=== PATIENT | male | born 1945 | race African-American/Black ===

== ENCOUNTER 2020-03-03 19:29 | Inpatient (IN) | payer SELFPAY ==
[~2020-03-03] VITALS: Ht 175.3 cm; Wt 71.0 kg
--- NOTE | 2020-03-03 19:30 | NUR ---
PT AMBULATED TO ROOM 13.
--- NOTE | 2020-03-03 19:40 | NUR ---
PT PRESENTS WITH CONCERNS OF CONFUSION. HIS FAMILY MEMBER IS HERE SAYING THAT PT HAS HAD SCATTERED THOUGHTS IN THE LAST 4-5 DAYS. PT IS ONLY ORIENTED TO PERSON. FAMILY AND PT DENIES ANY OTHER S/S OR PAINS. WILL CONTINUE TO MONITOR.
[2020-03-03] MEDS ORDERED: BP (19:55)
[2020-03-03 20:02] LABS: HEMATOCRIT 39.7 % (39.0-50.0); HEMOGLOBIN 13.5 g/dl (14.0-18.0); IMMATURE GRANULOCYTES 0.3 % (0.0-5.0); MEAN CELL VOLUME 86.3 fL CALC (80.0-100.0); MEAN CORPUSCULAR HGB 29.3 pG CALC (26.0-32.0); NEUT# 1.8 thou/uL (1.82-7.42); RED BLOOD COUNT 4.6 mill/uL (4.70-6.10); RED CELL DISTRI WIDTH 13.2 % (11.5-15.5)
[2020-03-03 20:19] LABS: PROTHROMBIN TIME 10.5 SECONDS (9.0-12.5)
[2020-03-03 20:21] LABS: ALKALINE PHOSPHATASE 39 u/l (38-126); ANION GAP 12 (6-22 (CALC)); BILIRUBIN, TOTAL 0.4 mg/dL (0.0-1.4); BUN 12 mg/dL (8-23); BUN/CREATININE RATIO 15 (12-20 (CALC)); CARBON DIOXIDE 24 mmol/l (22-30); CHLORIDE 105 mmol/l (95-108); CREATININE 0.8 mg/dL (0.7-1.3); ETHYL ALCOHOL 18 mg/dl (0-30); GFR > 60 ML/MIN (>=60 (CALC)); GFR FOR AFR.AMER. > 60 ML/MIN (>=60 (CALC)); LIPASE 191 u/l (23-300); POTASSIUM 3.5 mmol/l (3.5-5.1); SGOT/AST 23 u/l (19-48); SODIUM 138 mmol/l (137-146); TOTAL PROTEIN 6.9 g/dL (6.3-8.2)
[2020-03-03 20:32] LABS: MYOGLOBIN 45 ng/mL (0 - 121)
--- NOTE | 2020-03-03 20:40 | NUR ---
PT RESTING IN STRETCHER. CALL LIGHT WITHIN REACH. DENIES ANY NEEDS AT THIS TIME
[2020-03-03 21:09] LABS: URINE BILIRUBIN - DIPSTICK NEGATIVE (NEGATIVE); URINE BLOOD DIPSTICK NEGATIVE (NEGATIVE); URINE COLOR YELLOW; URINE GLUCOSE - DIPSTICK NEGATIVE (NEGATIVE); URINE KETONE NEGATIVE (NEGATIVE); URINE LEUK ESTERASE NEGATIVE (NEGATIVE); URINE NITRITE - DIPSTICK NEGATIVE (Negative); URINE PH 5.5 (4.5-8.0); URINE PROTEIN - DIPSTICK NEGATIVE (NEG-TRACE); URINE SPECIFIC GRAVITY 1.025; URINE UROBILINOGEN - DIPSTICK 0.2 E.U./dL (0.2)
[2020-03-03 21:15] LABS: BARBITURATES NEGATIVE (NEGATIVE); COCAINE NEGATIVE (NEGATIVE); METHADONE NEGATIVE (NEGATIVE); OXCYCODONE NEGATIVE (NEGATIVE); TETRAHYDROCANNABIONOL NEGATIVE (NEGATIVE); TRICYLIC ANTIDEPRESSANTS NEGATIVE (NEGATIVE)
[2020-03-03 21:33] LABS: TSH, 3RD GENERATION 7.46 uIU/mL (0.47 - 4.68)
--- NOTE | 2020-03-03 21:48 | NUR ---
GAVE REPORT TO PEYTON
--- NOTE | 2020-03-03 22:08 | NUR ---
CALLED FLOOR FOR REPORT, SEAMUS IN ANOTHER ROOM WILL CALL BACK
--- NOTE | 2020-03-03 22:17 | NUR ---
Admission Note Report Given to: SEAMUS Transported by: X Wheelchair Stretcher Transported with: X Nurse Transporter X Patent IV O2 X Public Health Nurse Location: ICU X [facility]
[2020-03-03 22:28] VITALS: BP 169/74
--- NOTE | 2020-03-03 23:30 | NUR ---
PATIENT ADMITTED FROM ER VIA STRETCHER WITH ER STAFF IN ATTENDANCE. PATIENT IS AWAKE BUT CONFUSED. ASSISTED FROM STRETCHER TO THE BED. ABLE TO FOLLOW VERBAL QUES. AWAKE ALERT BUT CONFUSED. CREOLE SPEAKING ONLY. TELE MONITOR IN PLACE. IV SITE RIGHT AC WITH BANANA BAG PATENT AND INFUSING AT 125CC/HR. SITE IS HEALTHY. TELE MONITOR IN PLACE. 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 STATES THAT THEY JUST GOT TO [facility] A FEW DAYS AGO WHEN PATIENT STARTED TO BE CONFUSED AND HAVING TROUBLES. STATES THAT PATIENT STAYS WITH THEM-HER AND HER WHEN ON THE ROAD FOR HARVESTING RECENTLY [place]. FAMILY IS ALL IN [facility]. STATES THAT HE HAS HX OF HTN BUT NOTHING ELSE. TAKES LISINOPRIL, HCTZ AND CHOLESTEROL PILL-NOT SURE OF THE DOSES. NO LOCAL PCP. DRINKS 1-2 BEERS DAILY BUT NOT RECENTLY. NO DRUGS. ELAINE WILL CALL IN MORNING FOR UPDATE. PHONE #-[phone]-CALL IF NEEDED FOR INFO OR TRANSLATION. PATIENT RESTING IN BED. CALL LIGHT IN REACH. WILL CONT TO MONITOR.
[2020-03-03 23:48] VITALS: BP 178/83
[2020-03-04] VITALS (8 sets, daily range): BP systolic 142–172; BP diastolic 63–84
--- NOTE | 2020-03-04 04:00 | NUR ---
PATIENT RESTING IN BED- USING URINAL INSTRUCTED-VOIDING YELLOW URINE. TELE MONITOR IN PLACE. IVF PATENT AND INFUSING AT 125CC/HR. BED ALARM IN PLACE FOR PATIENT SAFETY. CALL LIGHT IN REACH. WILL CONT TO MONITOR.
--- NOTE | 2020-03-04 04:51 | NUR ---
PATIENT RESTING IN BED-MEDICATED WITH MYLANTA 30CC FOR INDIGESTION WITH RELIEF PATIENT STATES THAT HE WAS UP TO BR FOR BM AND BACK TO BED. TELE MONITOR IN PLACE. IVF PATENT AND INFUSING VIA LAC SITE. CALL LIGHT IN REACH. WILL CONT TO MONITOR.
[2020-03-04 05:10] LABS: CHOLESTEROL HDL RATIO 2.9 (<4.4 (CALC))
--- NOTE | 2020-03-04 07:10 | NUR ---
CHANGE OF SHIFT REPORT RECEIVED FROM JEANIE WAY. PT ABLE TO AMBULATE TO BATHROOM THIS AM WITH STAND BY ASSIST. PT'S GAIT IS STABLE. FALL SAFETY EDUCATION REINFORCED. PT VERBALIZED UNDERSTANDING. NO CONFUSION NOTED THIS AM. DISPERSION MIXER WILL CONTINUE TO MONITOR MENTAL STATUS
--- NOTE | 2020-03-04 11:54 | NUR ---
PT RESTING COMFORTABLY IN BED. PT DENIES PAIN OR DISCOMFORT. PT REORIENTED TO CALL BUTTON. PT DENIES NEED TO USE BATHROOM AT THIS TIME. PT SITTING EATING LUNCH AT THIS TIME. FACE SYMMETRICAL ABLE TO MOVE ALL EXTREMITIES WITH NO DRAG NOTED. CHISEL TRIMMER WILL CONTINUE TO MONITOR
--- NOTE | 2020-03-04 16:53 | NUR ---
PT WITH COMPLAINT OF INFREQUENT URINARY FREQUENCY. PT DENIES DYSURIA/URGENCY BLADDERIS NON PALPABLE. BLADDER IS NOT DISTENDED. URINALYSIS IS NEGATIVE FOR UTI. BLADDER SCAN RESULT SHOWS LESS THAN 71ML. DR SANCHEZ NOTIFIED OF PT BP OF 174/89 WITH HEART RATE OF 54. ORDER RECEIVED TO GIVE NORVASC 5MG AT THIS TIME. MEDICATION ADMINISTERED AT THIS TIME. PSYCHOLOGIST RESEARCH ASSISTANT WILL CONTINUE TO MONITOR.
--- NOTE | 2020-03-04 18:18 | NUR ---
APRESOLINE 10MG ADMINISTERED VIA IV FOR BP OF 170/84. PT HEART RATE AT 58. EMERGENCY RESPONSE OFFICER WILL RECHECK BP IN 15 MINUTES
--- NOTE | 2020-03-04 19:54 | NUR ---
PATIENT RESTING IN BED AT THIS TIME-AWAKE ALERT AND ORIENTED. TELE MONITOR IN PLACE. SALINE LOCK TO RIGHT AC INTACT-APPEARS HEALTHY AT THIS TIME. CALL LIGHT IN REACH. WILL CONT TO MONITOR.
--- NOTE | 2020-03-04 20:51 | NUR ---
PATIENT RESTING IN BED-AWAKE ALERT AND ORIENTED[address] HERE FOR TRANSLATION. PATIENT WITH NO COMPLAINTS OR CONCERNS AT THIS TIME. PATIENT DENIES ANY HEADACHES, NO IMPAIRED VISIONS, HAND GRASPS ARE EQUAL AND STRONG. STATES THAT HE DID HAVE BM TODAY. NO DIFFICULTY WITH URINATION. NO COUGH. SAFETY PRECAUTIONS REINFORCED. CALL LIGHT IN REACH. WILL CONT TO MONITOR.
--- NOTE | 2020-03-05 00:53 | NUR ---
PATIENT APPEARS SLEEPING WITH EYES CLOSED. RESPS ARE EVEN AND UNLABORED. TELE MONITOR IN PLACE. CALL LIGHT IN REACH. WILL CONT TO MONITOR.
[2020-03-05 03:52] VITALS: BP 147/75
--- NOTE | 2020-03-05 04:24 | NUR ---
PATIENT RESTING IN BED AT THIS TIME-APPEARS SLEEPING AT THIS TIME WITH EYES CLOSED. RESPS ARE EVEN AND UNLABORED. TELE MONITOR IN PLACE. SALINE LOCK TO RIGHT AC INTACT. CALL LIGHT IN REACH. WILL CONT TO MONITOR.
[2020-03-05 07:48] VITALS: BP 143/70
--- NOTE | 2020-03-05 08:24 | NUR ---
PT SEEN AWAKE, ALERT, ORIENTED TO SELF AND PLACE, LANGUAGE BARRIER PER PALESTINIAN CREOLE SPEAKER. LUNGS CLEAR, RA. ABDOMEN SOFT, NONTENDER, BM YESTERDAY. SKIN INTACT. NO EVIDENCE OF WEAKNESS OR SPEECH ISSUES.
[2020-03-05 10:43] VITALS: BP 133/65
--- NOTE | 2020-03-05 14:12 | NUR ---
PT HAS HAD CAROTID U/S TODAY, BUT REFUSED MRI. PT IS AMBULATORY IN ROOM; PHYSICAL THERAPY HAS SEEN HIM TODAY.
[2020-03-05 15:00] VITALS: BP 170/80
--- NOTE | 2020-03-05 16:16 | NUR ---
PT UP IN ROOM, GAIT STEADY. PT SEEN BY PHYSICAL THERAPY TODAY. NEURO STATUS REMAINS BEFORE, NO DEFICITS NOTED.
--- NOTE | 2020-03-05 16:22 | NUR ---
PT note Patient is seen for evaluation. He demonstrates confusion as well as slight RUE weakness and decreased fine motor skills. He would do well to be DC home when medically stable and follow upwith outpatient OT if medical agrees
[2020-03-05 18:59] VITALS: BP 152/77
--- NOTE | 2020-03-05 19:00 | NUR ---
RECEIVED REPORT FROM NURSE PATEL, PATIENT RESTIN IN BED, WATCHING TV, EVEN UNLABORED BREATHING NO SIDCOMFORTS NOTED AT THIS TIME.
--- NOTE | 2020-03-05 21:00 | NUR ---
PATIENT ALERT AND ORIENTED TO PERSON, DENIES PAIN AND DISCOMFORTS, WITH SALINE LOCK ON RAC G20 PATENT FLUSHES WELL, REMAINS ON TELE SR 65, AMBULATING INSIDE ROOM WITH STEADU GAIT, CALL LIGHT AT REACH
[2020-03-05 23:57] VITALS: BP 192/81
--- NOTE | 2020-03-06 00:14 | NUR ---
BP 192/81 APRESOLINE GIVEN, PATIENT AWAKE AT THIS TIME, NO DISCOMFORTS NOTED.
[2020-03-06 02:57] VITALS: BP 134/74
--- NOTE | 2020-03-06 04:03 | NUR ---
PATIENT APPEARS TO BE SLEEPING WITH EYES CLOSED, BREATHINGH EVEN AND UNLABORED, CALL LIGHT AT REACH.
[2020-03-06 05:12] LABS: HEMATOCRIT 41.3 % (39.0-50.0); HEMOGLOBIN 13.7 g/dl (14.0-18.0); IMMATURE GRANULOCYTES 0.3 % (0.0-5.0); MEAN CELL VOLUME 88.6 fL CALC (80.0-100.0); MEAN CORPUSCULAR HGB 29.4 pG CALC (26.0-32.0); MEAN CORPUSCULAR HGB CONC 33.2 g/dL CAL (32.0-36.0); NEUT# 2.16 thou/uL (1.82-7.42); RED BLOOD COUNT 4.66 mill/uL (4.70-6.10); RED CELL DISTRI WIDTH 13.6 % (11.5-15.5)
[2020-03-06 05:29] LABS: ANION GAP 10 (6-22 (CALC)); BUN 18 mg/dL (8-23); BUN/CREATININE RATIO 23 (12-20 (CALC)); CARBON DIOXIDE 24 mmol/l (22-30); CHLORIDE 105 mmol/l (95-108); CREATININE 0.8 mg/dL (0.7-1.3); GFR > 60 ML/MIN (>=60 (CALC)); GFR FOR AFR.AMER. > 60 ML/MIN (>=60 (CALC)); POTASSIUM 3.5 mmol/l (3.5-5.1); SODIUM 136 mmol/l (137-146)
--- NOTE | 2020-03-06 07:00 | NUR ---
SHIFT CHANGE REPORT, PT SLEEPING SOUNDLY AND SNORING, RESPONDS TO TACTILE STIMULATION, NO DISCOMFORT REPORTED, CALL PARISI IN REACH.
[2020-03-06 07:53] VITALS: BP 144/69
[2020-03-06 09:21] VITALS: BP 144/69
[2020-03-06] MEDS ORDERED: AMLODIPINE BESYL5 MG PO (10:14)
[2020-03-06] MEDS ORDERED: LIPITOR20 MG PO (10:14)
[2020-03-06] MEDS ORDERED: LISINOPRIL20 M1 PO (10:14)
[2020-03-06] MEDS ORDERED: ADLT ASA LOW81 MG PO (10:14)
--- NOTE | 2020-03-06 15:10 | NUR ---
SPOKE TO ELAINE WHO IS A CONTACT, SHE REPORTED SHE WAS TOLD PT WOULD NOT BE D/C TILL TOMORROW AND SHE IS CURRENTLY OUT OF TOWN BUT WILL BE COMING BACK TOMORROW, SHE ALSO INFORMED ME THE OTHER PERSON WHO COULD RECEIVE PATIENT IS AT WORK AT THIS TIME BUT WILL BE ABLE TO RECEIVE HIM AFTER 1800 TODAY. PT WAS GIVEN THIS INFORMATION VIA PHONE.
--- NOTE | 2020-03-06 16:22 | NUR ---
SPOKE WITH CONTACT ELAINE WHO REPORTED PT DOES NOT HAVE MONEY TO PURCHASE MEDICATIONS AND WANTED TO FIND OUT IF OUR PHARMACY COULD PROVIDE HIM WITH MEDS, ADVISED OUR PHARMACY WOULD NOT GIVE MEDS TO TAKE HOME BUT NURSE WILL INVESTIGATE OTHER OPTIONS AND LET HER KNOW. CM WAS NOTIFIED AND IS CURRENTLY WORKING ON OBTAINING MEDS FROM [facility]. PT IS DRESSED AND ANXIOUS TO LEAVE, ENCOURAGED TO WAIT UNTIL RIDE ARRIVES HERE AFTER 1800 TO RECEIVE HIM, THIS INFORMATION WAS RELAYED TO PT VIA PHONE BY CONTACT AND PT STATED UNDERSTANDING.
--- NOTE | 2020-03-06 18:30 | NUR ---
Discharge instructions given. Patient verbalizes understanding of same. Discharged in good condition via Wheelchair to Home with *Other. All belongings sent with pt.
== END 2020-03-06 18:35 | disposition home or self-care (01) | DRG 66 ==
LOC: ED 19:29 → ED-I 21:31 → ED 21:41 → MS2 21:42
PROVIDERS: Family Medicine; ADMIT Internal Medicine; ATTEND Internal Medicine
DX: I63.89 Other cerebral infarction (principal); R41.89 Other symptoms and signs involving cognitive functions and awareness; I10 Essential (primary) hypertension; E78.5 Hyperlipidemia, unspecified; R10.30 Lower abdominal pain, unspecified; Z53.20 Procedure and treatment not carried out because of patient's decision for unspecified reasons